=== PATIENT | female | born 1970 | race Caucasian/White ===

== ENCOUNTER → 2017-06-23 | Outpatient (CLI) | payer BC ==
[2017-06-23 14:26] VITALS: BP 139/87; PULSE 73; RESP 16; TEMP 98; BMI 31.1
--- NOTE | 2017-07-04 13:21 | P.HPBAR ---
Bariatric H&P - History & Physicial H&P Date: 06/23/17 History & Physicial: Visit/CC: band adj Patient initial contact: Initial weight: 133.81 kg Initial weight in pounds: 295.00 Height: 5 ft 7.5 in Initial BMI: 45.5 Last weight: Current weight: 91.626 kg Current weight in pounds: 202.00 Current BMI: 31.1 Ava body weight (based on NIH guidelines): 62.369 kg Excess body weight loss: 59.0% The patient is a 46 year-old F who presents for Bariatric Assessment.the patient is currently hungry and requesting a fill of her band. Past Medical History History of Any Multi-Drug Resistant Organisms: None Reported Past Surgical History: Back Surgery, Bariatric Surgery Additional Past Surgical History / Comment(s): lap band placed [address] Astudillo, 2007 L4-L5 laminectomy, 2005 panniculectomy (Dr. Astudillo) Past Anesthesia/Blood Transfusion Reactions: No Reported Reaction Additional Past Anesthesia/Blood Transfusion Reaction / Comm: NO transfusions to date (states after panniculectomy she did have a major decrease in BP) Smoking Status: Never smoker - Past Family History Father Family Medical History: Cancer Additional Family Medical History / Comment(s): skin, anal, AIDS Mother Additional Family Medical History / Comment(s): psychiatric problems Surgical - Exam Vital Signs Temp Pulse Resp BP 98 F 73 16 139/87 06/23/17 14:22 06/23/17 14:22 06/23/17 14:22 06/23/17 14:22 - General well developed, no distress - Eyes PERRL - Abdomen Abdomen: soft, non tender Bariatric Assessment & Plan Plan: the patient's lap band was adjusted. She had 0.2 cc Atrovent. She currently has 4.2 cc in her band. She'll follow-up in 4 weeks. Bariatric Checklist Checklist: Plan: Checklist: EGD: 1. Hiatal hernia: 2. H. Pylori: HgbA1c: Vitamin D: Smoking: Never smoker Primary care physician referral: Psychiatry clearance: Cardiology clearance: Sleep study: Diet journal: VTE risk score: VTE risk level: Rehab needs at discharge:
== END | disposition home or self-care (01) ==
LOC: BARWHC3 13:32
PROVIDERS: ATTEND Surgery
DX: Z46.51 Encounter for fitting and adjustment of gastric lap band (principal); T73.0XXA Starvation, initial encounter; Z98.84 Bariatric surgery status; Z98.890 Other specified postprocedural states
CPT/HCPCS: 99212